=== PATIENT | female | born 1955 | race Caucasian/White ===

== ENCOUNTER 2023-09-15 15:06 | Outpatient (REF) | payer MEDICARE, SELFPAY ==
[2023-09-15 16:06] LABS: MANUAL DIFF FLAG NO
[2023-09-15 16:25] LABS: Basophils Percent Auto 0.7 % (0-2); Eosinophils Absolute Auto 0.2 X10*3/uL (0.0-0.4); Eosinophils Percent Auto 2.6 % (0-4); Imm Gran Abs Auto 0.01 X10*3/uL (0.00-0.03); Imm Gran Pct Auto 0.2 % (0.0-0.4); Lymphocytes Absolute Auto 1.6 X10*3/uL (1.2-4.9); Lymphocytes Percent Auto 28.1 % (20-40); Mean Corpuscular HGB Conc 33.3 g/dl (31.0-35.0); Mean Corpuscular Hemoglobin 31.4 pg (27.0-33.0); Mean Corpuscular Volume 94.3 fL (80.0-98.0); Mean Platelet Volume 11.1 fL (9.4-12.3); Monocytes Absolute Auto 0.5 X10*3/uL (0.1-1.2); Monocytes Percent Auto 8.8 % (2-11); Neutrophils Absolute Auto 3.5 x10*3/uL (2.0-8.3); Neutrophils Percent Auto 59.6 % (45-73); Platelet Count 336 X10*3/uL (160-400); Red Blood Count 5.09 X10*6/uL (4.20-5.50); Red Cell Distribution Width 12.2 % (11.0-16.0); White Blood Count 5.8 X10*3/uL (4.8-10.8)
[2023-09-15 16:49] LABS: Alanine Aminotransferase 15 U/L (0-31); Albumin Level 4.4 g/dL (3.5-5.0); Alkaline Phosphatase 97 U/L (39-117); Anion Gap 14 (12-20); Aspartate Amino Transferase 26 U/L (5-31); Bilirubin Total 0.6 mg/dL (0.0-1.0); Blood Urea Nitrogen 11 mg/dL (9-16); Calcium 9.6 mg/dL (8.4-10.2); Carbon Dioxide 28 mmol/L (22-29); Chloride 103 mmol/L (96-108); Estimated Glomerular Filt Rate > 60; Glucose Random 103 mg/dL (60-115); Sodium 141 mmol/L (135-145); Total Protein 7.8 g/dL (6.5-8.0)
[2023-09-15 16:58] LABS: TSH reflex Free T4 1.13 uIU/mL (0.32-4.0); Vitamin D 25-OH Total 25.9 ng/mL (>30)
== END 2023-09-15 15:07 | disposition home or self-care (01) ==
LOC: HO.HHCL 15:06
PROVIDERS: Visit Provider Internal Medicine Geriatric Medicine
DX: I10 Essential (primary) hypertension (principal); R63.6 Underweight
CPT/HCPCS: 36415; 80053; 82306; 84443; 85025

== ENCOUNTER 2023-10-08 10:46 | Outpatient (REF) | payer MEDICARE, SELFPAY ==
--- NOTE | ~2023-10-08 | MM_ITS ---
EXAMINATION: BONE DENSITOMETRY CLINICAL INDICATION: Postmenopausal. COMPARISON: This is the patient's baseline examination. TECHNIQUE: Using a [employer] DXA System (software version: 13.1) manufactured by [employer], dual-energy x-ray absorptiometry was performed of the lumbar spine and left hip. The images are of good technical quality. Summary results are attached. FINDINGS: LEFT FEMUR, NECK: BMD 0.564 g/cm2, Z-score -1.4, T-score -3.4, osteoporosis. LEFT FEMUR, TOTAL: BMD 0.601 g/cm2, Z-score -1.4, T-score -3.2, osteoporosis. AP SPINE L1-L4: BMD 0.715 g/cm2, Z-score -1.6, T-score -3.9, osteoporosis. IDENTIFIED RISK FACTORS: Early menopause, low body weight, osteoporosis, secondary osteoporosis. HISTORY OF FRACTURE: None listed. MEDICATIONS: None listed. MM/XR DEXA axial skeleton IMPRESSION: 1. DIAGNOSIS: Osteoporosis based on the lowest T-score value of -3.9 in the lumbar spine applying World Health Organization criteria. 2. 10-YEAR FRACTURE RISK PREDICTION, FRAX: According to the guidelines, FRAX calculation should only be performed on patients in the osteopenia bone density category. Therefore, FRAX was not performed on this patient. 3. Treatment Recommendations: NOF guidelines recommend consideration for treatment in postmenopausal women and men age 50 and older presenting with the following: -A hip or vertebral (clinical or morphometric) fracture. -T-score less than or equal to -2.5 at the femoral neck or spine after appropriate evaluation to exclude secondary causes. -Low bone mass at the hip or spine and a 10-year fracture probability by FRAX of greater than or equal to 3% for hip fracture or greater than or equal to 20% for major osteoporotic fracture based on the [place] adapted WHO algorithm. 4. Other Recommendations: All treatment decisions require clinical judgment and consideration of individual patient factors, including patient preferences, comorbidities, previous drug use, risk factors not captured in the FRAX model (e.g. frailty, falls, vitamin D deficiency, increased bone turnover, interval significant decline in bone density) and possible under or overestimation of fracture risk by FRAX. Additional medical evaluation for secondary cause of low bone mineral density may be appropriate. FUTURE SCAN RECOMMENDATION: People with diagnosed cases of osteoporosis or at high risk for fracture should have regular bone mineral density tests. For patients eligible for Medicare, routine testing is allowed once every 2 years. The testing frequency can be increased to one year for patients who have rapidly progressing disease, those who are receiving or discontinuing medical therapy to restore bone mass, or have additional risk factors.
== END 2023-10-08 10:47 | disposition home or self-care (01) ==
LOC: HO.MAMMO 10:46
PROVIDERS: PCP Internal Medicine Geriatric Medicine; Visit Provider Internal Medicine Geriatric Medicine
DX: Z12.31 Encounter for screening mammogram for malignant neoplasm of breast (principal); Z13.820 Encounter for screening for osteoporosis; Z78.0 Asymptomatic menopausal state
CPT/HCPCS: 77063; 77067; 77080

== ENCOUNTER → 2023-10-08 11:15 | Outpatient (BNV) | payer MEDICARE, SELFPAY | PROVIDERS: PCP Internal Medicine Geriatric Medicine; Visit Provider Radiology Diagnostic Radiology | DX: Z12.31 Encounter for screening mammogram for malignant neoplasm of breast (principal) | CPT/HCPCS: 77063; 77067 ==

== ENCOUNTER 2024-10-21 14:46 | Outpatient (REF) | payer MEDICARE, SELFPAY ==
--- OUTSIDE RECORDS SUMMARY | 2024-10-21 14:48 | XMS_ITS | Clinical Summary ---
Author Organization [employer] Address [address] [place] [address] [address] [place] [address] Care Team Providers Care Cotton Farmer Name Role Phone Name, Darwin HADLEY Primary Care Provider [phone] Allergies Active Allergy Reactions Criticality Noted Date Comments Azithromycin Diarrhea High 05/31/2021 Beef (Bovine) Protein 02/08/2018 Other reaction(s): skin reaction Black Linwood Flavoring Agent (Non-Screening) 02/08/2018 Other reaction(s): skin reaction Black Linwood Pollen Allergy Skin Test 02/08/2018 Other reaction(s): skin reaction Calcitonin (Crary) 02/08/2018 Celery Oil 02/08/2018 Other reaction(s): skin reaction Citrullus Vulgaris 02/08/2018 Other reaction(s): skin reaction Coconut Fatty Acid 02/08/2018 Other reaction(s): skin reaction [place] Oil 02/08/2018 Other reaction(s): skin reaction [place]-Containing Products 02/08/2018 Other reaction(s): skin reaction Fish Allergy 02/08/2018 Other reaction(s): skin reaction Metronidazole 01/02/2017 Other reaction(s): globus sensation Milk (Cow) 02/08/2018 Other reaction(s): skin reaction Omeprazole 01/02/2017 Other reaction(s): globus sensation Peanut Extract Allergy Skin Test 02/08/2018 Other reaction(s): skin reaction Peanut-Containing Drug Products 02/08/2018 Other reaction(s): skin reaction Pear 02/08/2018 Other reaction(s): skin reaction Pineapple Extract 02/08/2018 Other reaction(s): skin reaction Pistachio Nut Extract 02/08/2018 Other reaction(s): skin reaction Sesame Oil 02/08/2018 Other reaction(s): skin reaction Eldridge Extract 02/08/2018 Other reaction(s): skin reaction Tomato 02/08/2018 Other reaction(s): skin reaction Wheat Extract Other 12/30/2022 Yeast 02/08/2018 Other reaction(s): skin reaction Medications * This document contains information received from the source organization and may not represent a complete record from that organization. Blood Pressure kit Use once a day 1 kit 4 Active propranolol (Inderal) 10 MG tablet TAKE 1 TABLET BY MOUTH EVERY DAY NEEDED 1/2 HOUR PRIOR TO ANXIETY PROVOKING SITUATION 90 tablet 4 Active Active Problems Problem Noted Date Diagnosed Date Hypertensive disorder 02/10/2022 Heartburn 12/25/2015 Posterior rhinorrhea 06/27/2015 Allergic rhinitis due to allergen 09/20/2014 Hair loss 09/20/2014 12/30/2022 History of anemia 09/20/2014 12/30/2022 Weight loss 09/20/2014 12/30/2022 Encounters Date Type Department Care Team Description 07/21/2024 Telephone [facility] [address] [place] [id number] [place] oct[place] recalls from Last 3 Months Immunizations Immunization Administration Dates Next Due INFLUENZA VACCINE QUADRIVALE NT RECOMBINANT PRESERVATIVE FREE RIV4 02/27/2020 Influenza High-dose Quadriva lent Preservative Free 11/11/2022,01/05/2022 Moderna Covid-19 Vaccine 12+ 06/16/2021, 02/04/2021,06/07/2020,2020 Tdap 09/15/2023 Social History Tobacco Use Types Packs/Day Years Used Date Smoking Tobacco: Never Smokeless Tobacco: Never Tobacco Cessation:Counseling Given: Not Answered Alcohol Use Standard Drinks/Week Comments Never 0 (1 standard drink = 0.6 oz pur e alcohol) Alcohol Answer Date Recorded Frequency of Alcohol Consumption Not on file 09/15/2023 Average Number of Drinks Not on file 024 Frequency of Binge Drinking Not on file 04/2023 Score 0 09/15/2023 Depression Answer Date Recorded Patient Health Questionnaire-9 Score 0 09/15/2023 Patient Health Questionnaire-9 Score 0 09/15/2023 Last PHQ-9: Questionnaire Data Not on file 0 09/15/2023 Housing Stability Answer Date Recorded What is your housing situation today? I have kiko javier 09/15/[address] you li ve. Do you have problems with any of the following? None of the above 09/15/2023 Food Insecurity Answer Date Recorded Within the past 12 months, y ou worried that your food would run out before you got money to buy more: Never True 09/15/2023 Within the past 12 months,th e food you bought just didn't last and you didn't have enough money to get more: Never True 04/2023 Transportation Answer Date Recorded In the past 12 months, has l ack of transportation kept you from medical appts, meetings, work or from getting things needed for daily living? No 09/15/2023 Utilities Answer Date Recorded In the past 12 months, has t he electric, gas, oil or water company threatened to shut off services in your home? No 09/15/2023 Depression Answer Date Recorded Patient Health Questionnaire-2 Score 0 09/15/2023 Internet Access Answer Date Recorded Internet Access Q1 No 11/16/2023 Internet Access Q2 I do not want or need it 04/2023 Comments Unknown Sex and Gender Information Value Date Recorded Sex Assigned at Female 01/13/2022 10:29 AM EDT Legal Sex Female 10:29 AM EDT Gender Identity Female 01/13/2022 10:29 AM EDT Sexual Orientation Straight 01/13/2022 10 :29 AM EDT Last Filed Vital Signs Vital Sign Reading Time Taken Comments Blood Pressure 158/90 09/15/2023 2:26 PM EDT Pulse 80 09/15/2023 1:39 PM EDT Temperature 36.1 C (96.9 F) 09/15/2023 1:39 PM EDT Respiratory Rate 16 09/15/2023 1:39 PM EDT Oxygen Saturation 98% 09/15/2023 1:39 PM EDT Inhaled Oxygen Concentration - - Weight 46.1 kg (101 lb 9.6 oz) 09/15/2023 1:39 P M EDT Height 160 cm (5' 3 ) 09/15/2023 1:39 PM EDT Body Mass Index 18 09/15/2023 1:39 PM EDT Plan of Treatment Upcoming Encounters Date Type Department Care Team (Late st Contact Info) Description 12/13/2024 2:45 PM EDT Office Visit [facility] [address] [facility] [place] [address] Name, MD Darwin [address] [place] [address] Health Maintenance Due Date Last Done Comments CT Colonography 1955 Colonoscopy 1955 Colorectal Cancer Screening 1955 FIT DNA/Cologuard 1955 FIT 1955 FOBT 1955 Lipid Panel 1955 Sigmoidoscopy 1955 Alcohol/Substance Use Screening 1967 Hepatitis C Screening 1973 Pneumococcal Vaccine: 50+ Years (1 of 1 - PCV) 2005 Zoster Vaccines (1 of 2) 2005 COVID-19 Vaccine ( season) 2024 12/22/2023, 12/01/2022, 12/10/2021, Additional history exists Depression Screening 09/14/2024 09/15/2023, 09/15/19 24 SDOH Screening 09/14/2024 09/15/2023 Tobacco Screening 09/14/2024 09/15/2023 Mammogram 10/07/2024 10/08/2023, 10/17/2021 Influenza Vaccine (#1) 2024 , 11/11/2022, 01/05/2022, Additional history exists Cervical Cancer Screening 11/01/2025 HPV/Cotest 11/01/2025 11/01/2020 Pap Smear 11/01/2025 11/01/2020 RSV Patients and Patients Aged 60 years or older (1 - 1-dose 75+ series) 2030 DTaP/Tdap/Td Vaccines (2 - Td or Tdap) 09/14/2033 09/15/2023 HIB Vaccines Aged Out No longer eligi ble based on patient's age to complete this topic HPV Vaccines Aged Out No longer eligi ble based on patient's age to complete this topic Hepatitis A Vaccines Aged Out No long er eligible based on patient's age to complete this topic Hepatitis B Vaccines Aged Out No long er eligible based on patient's age to complete this topic IPV Vaccines Aged Out No longer eligi ble based on patient's age to complete this topic Meningococcal B Vaccine Aged Out No l onger eligible based on patient's age to complete this topic Meningococcal Vaccine Aged Out No chang lefty eligible based on patient's age to complete this topic RSV under 20 months Aged Out No longe r eligible based on patient's age to complete this topic Rotavirus Vaccines Aged Out No longer eligible based on patient's age to complete this topic Procedures Procedure Name Priority Date/Time Associated Diagnosis Comments BI MAMMOGRAM SCREENING TOMOSYNTHESIS BILATERAL Routine 10/08/2023 11:30 AM EDT Encounter for screening mammogram for malignant neoplasm of breast HM PAP/HPV Routine 11/01/2020 from Last 3 Months or Most Recently Relevant to Health Maintenance Results * BI Mammogram Screening Tomosynthesis Bilateral (10/08/2023 11:30 AM EDT) Anatomical Region Laterality Modality Breast Bilateral Mammography 10/08/2023 11:3 0 AM EDT Narrative 10/28/2023 8:31 PM EDT [facility] [address] [place] [address] Mammography Report Signed Patient: Radha Merida MR#: [id number] 8 : 1955 Acct:[id number] Age/Sex: 68 / F ADM Date: 10/08/23 Loc: MAMMO Attending Dr: Darwin Ferris MD Ordering Physician: Darwin Ferris MD Results: 1Negative Date of Service: 10/08/23 Follow Up: 1 Year From Orig inal Mammogram Procedure(s): MM tomosynthesis screening BI Accession Number(s): [id number] cc: Darwin Ferris MD EXAMINATION: MM SCREENING DIGITAL BREAST TOMOSYNTHESIS, BILATERAL CLINICAL INFORMATION: Screening. Asymptomatic. COMPARISON: Mammography: This study is compared with prior exams dating back to 2018. TECHNIQUE: Digital breast tomosynthesis is performed in both the craniocaudal and mediolateral oblique views along with computer-aided detection (CAD). Synthesized 2D images are generated from the tomosynthesis. FINDINGS: There are scattered areas of fibroglandular density (ACR BI-RADS breast composition Category b). There are no significant masses, abnormal calcifications, or other abnormalities. MM/MM tomosynthesis screening BI IMPRESSION: No mammographic evidence of malignancy. ASSESSMENT: BI-RADS BI-RADS 1 - Negative RECOMMENDATION: Routine annual mammography screening. 1 year F/U This examination should not preclude the clinical evaluation of a suspicious palpable abnormality. This patient's information was entered into a reminder system with a target due date for their next mammogram. Dictated By: Leigh Caro MD Signed By: <Electronically signed by Leigh Caro MD in OV> 10/28/232026 DD/ 1130 TD/TT: Cloak Room Attendant: Procedure Note Donotuseinterpreter, Image - 10/28/2023 [facility] [address] [place] [address] Mammography Report Signed Patient: Debora Merida#: [id number] 8 : 6Acct:[id number] Age/Sex: 68 / FADM Date: 10/08/23 Loc: [facility] Attending Dr: Darwin Ferris MD Ordering Physician: Darwin Ferris MDResults: 1Negative Date of Service: 10/08/23Follow Up: 1 Year From Orig inal Mammogram Procedure(s): MM tomosynthesis screening BI Accession Number(s): [id number] cc: Darwin Ferris MD EXAMINATION: MM SCREENING DIGITAL BREAST TOMOSYNTHESIS, BILATERAL CLINICAL INFORMATION: Screening. Asymptomatic. COMPARISON: Mammography: This study is compared with prior exams dating back to 2018. TECHNIQUE: Digital breast tomosynthesis is performed in both the craniocaudal and mediolateral oblique views along with computer-aided detection (CAD). Synthesized 2D images are generated from the tomosynthesis. FINDINGS: There are scattered areas of fibroglandular density (ACR BI-RADS breast composition Category b). There are no significant masses, abnormal calcifications, or other abnormalities. MM/MM tomosynthesis screening BI IMPRESSION: No mammographic evidence of malignancy. ASSESSMENT: BI-RADS BI-RADS 1 - Negative RECOMMENDATION: Routine annual mammography screening. 1 year F/U This examination should not preclude the clinical evaluation of a suspicious palpable abnormality. This patient's information was entered into a reminder system with a target due date for their next mammogram. Dictated By: Leigh Caro MD Signed By: <Electronically signed by eLigh Caro MD in OV> 10/28/232026 DD/ 1130 TD/TT: Cloak Room Attendant: Darwin Ferris MD IMG BI PROCEDURES Final Result * Pap Smear (11/01/2020) Pap Negative for intraephithelial lesion or malignancy Negative for intraephithelial lesion or malignancy, Other HPV Undetected us Darwin Ferris MD HEALTH MAINTENANCE Final Result from Last 3 Months or Most Recently Relevant to Health Maintenance Insurance [employer] MEDICARE ADVANTAGE O AARP MEDICARE ADVANTAGE HMO Care Teams Cotton Farmer Relationship Specialty Start Date End Date Name, MD Darwin [address] [place] [id number] PCP - General Family Medicine 06/27/15
== END 2024-10-21 14:47 | disposition home or self-care (01) ==
LOC: HO.MAMMO 14:46
PROVIDERS: Visit Provider Internal Medicine Geriatric Medicine
DX: Z12.31 Encounter for screening mammogram for malignant neoplasm of breast (principal)
CPT/HCPCS: 77063; 77067

== ENCOUNTER → 2024-10-21 15:45 | Outpatient (BNV) | payer MEDICARE, SELFPAY | PROVIDERS: Visit Provider Radiology Body Imaging | DX: Z12.31 Encounter for screening mammogram for malignant neoplasm of breast (principal) | CPT/HCPCS: 77063; 77067 ==